=== PATIENT | female | born 1990 | race American Indian/Alaskan Native ===

== ENCOUNTER 2019-05-25 22:42 | Emergency (ER) | payer SELFPAY ==
[2019-05-25 22:51] VITALS: BP 103/69
--- NOTE | 2019-05-26 00:39 | XRay Report ---
CHEST 1 VIEW INDICATION / CLINICAL INFORMATION: Chest Pain. COMPARISON: None available. FINDINGS: SUPPORT DEVICES: None. HEART / MEDIASTINUM: No significant abnormality. LUNGS / PLEURA: No significant pulmonary or pleural abnormality. No pneumothorax. ADDITIONAL FINDINGS: No significant additional findings. IMPRESSION: 1. No acute findings. Signer Name: John Rios MD Signed: 05/26/2019 12:34 AM Workstation Name: [id number]
[2019-05-26] MEDS ORDERED: IBUPROFEN PO ONE (03:30)
[2019-05-26] MEDS ORDERED: IBUPROFEN ONE (03:36)
--- NOTE | 2019-05-26 05:10 | Emergency Department Report ---
ED General Adult HPI - General Chief complaint: Chest Pain Stated complaint: SHARP LEFT SIDE PAIN Source: patient Mode of arrival: Ambulatory Limitations: No Limitations - History of Present Illness Initial comments: 28-year-old female with significant past medical history is much department complaining a 1 week history of chest pain that radiates to the back and is worse with various range of motion and movement, associated with some mild shortness of breath due to pain. No fever, chills, sweats, hemoptysis, hematemesis, cough, congestion, trauma. She works as a truck driver instructor. No strenuous activity. Location: chest Radiation: other Consistency: constant Improves with: none (left scapular) Worsens with: none Associated Symptoms: denies other symptoms. denies: fever/chills, loss of appetite, malaise, nausea/vomiting, syncope, weakness - Related Data Allergies Allergy/AdvReac Type Severity Reaction Status Date / Time ibuprofen Allergy Rash Verified 05/25/19 22:46 ED Review of Systems ROS: Stated complaint: SHARP LEFT SIDE PAIN Other details as noted in HPI Comment: All other systems reviewed and negative ED Past Medical Hx - Surgical History Past Surgical History?: Yes Additional Surgical History: ACL surgery x 2 - Social History Smoking Status: Never Smoker ED Physical Exam - General Limitations: No Limitations General appearance: alert, in no apparent distress - Head Head exam: Present: atraumatic, normocephalic - Eye Eye exam: Present: normal appearance - ENT ENT exam: Present: mucous membranes moist - Neck Neck exam: Present: normal inspection, full ROM. Absent: lymphadenopathy, thyromegaly - Respiratory Respiratory exam: Present: normal lung sounds bilaterally, chest wall tenderness (tenderness to the sternal border with palpation opposed abduction. There is some left scapular borders were with palpation. Midseason, thrills, no crepitus, no subcutaneous emphysema). Absent: respiratory distress - Cardiovascular Cardiovascular Exam: Present: regular rate, normal rhythm. Absent: systolic murmur, diastolic murmur, rubs, gallop - GI/Abdominal GI/Abdominal exam: Present: soft, normal bowel sounds - Extremities Exam Extremities exam: Present: normal inspection - Back Exam Back exam: Present: normal inspection - Neurological Exam Neurological exam: Present: alert, oriented X3 - Psychiatric Psychiatric exam: Present: normal affect, normal mood - Skin Skin exam: Present: warm, dry, intact, normal color. Absent: rash ED Course Vital Signs 05/25/19 22:49 Temperature 98.4 F Pulse Rate 83 Respiratory 16 Rate Blood Pressure 103/69 O2 Sat by Pulse 97 Oximetry ED Medical Decision Making - Medical Decision Making 28-year-old female with chest pain. Musculoskeletal chest pain. Normal normal chest x-ray. No signs of infection. Having no call gallbladder pain with early other possible referred abdominal pain found. Examination rash is not located neck is full range of motion and supple. Pain is directly to the sternal border in the subscap border. Patient was advised this information, she decided to leave before discharge papers could be provided Critical care attestation.: If time is entered above; I have spent that time in minutes in the direct care of this critically ill patient, excluding procedure time. ED Disposition Clinical Impression: Musculoskeletal chest pain Disposition: DC-07 LEFT AGAINST MED ADVICE Is pt being admited?: No Does the pt Need Aspirin: No Condition: Stable Instructions: Chest Pain (ED), Costochondritis (ED) Referrals: JONNIE HONEYCUTT MD [Primary Care Provider] - 3-5 Days Forms: AMA Form
== END 2019-05-26 03:42 | disposition left against medical advice (07) ==
LOC: ED 22:42
DX: R07.89 Other chest pain (principal)
CPT/HCPCS: 71045; 93005; 93010